=== PATIENT | male | born 1990 | race African-American/Black ===

== ENCOUNTER 2016-06-15 20:02 | Emergency (ER) | payer OTHER ==
[~2016-06-15] VITALS: Ht 170.2 cm; Wt 73.0 kg
[~2016-06-15 20:02] MED LIST: AUGMENTIN875 MG PO; CLINDAMYCIN HC300 MG PO; INDOCIN25 MG PO; NO HOME MEDS; NORCO 7.5/321 TABLET PO; PERCOCET 5/31 TABLET PO
[2016-06-15] MEDS ORDERED: PEN-VEE K,VEET500 MG PO (21:22)
[2016-06-15] MEDS ORDERED: NORCO 5/3251 TABLET PO (21:22)
[2016-06-15 21:48] VITALS: BP 137/71
== END 2016-06-15 22:01 | disposition home or self-care (01) ==
LOC: EME 20:02
DX: K08.89 Other specified disorders of teeth and supporting structures (principal); K03.81 Cracked tooth; K02.9 Dental caries, unspecified; F17.200 Nicotine dependence, unspecified, uncomplicated
CPT/HCPCS: 99281; 99284

== ENCOUNTER 2016-08-07 20:58 | Emergency (ER) | payer OTHER ==
[~2016-08-07] VITALS: Ht 170.2 cm; Wt 71.4 kg
[~2016-08-07 20:58] MED LIST changes: +NORCO 5/3251 TABLET PO; +PEN-VEE K,VEET500 MG PO
[2016-08-07] MEDS ORDERED: CLEOCIN300 MG PO (21:47)
[2016-08-07] MEDS ORDERED: PERCOCET 5/31 TABLET PO (22:38)
[2016-08-07 22:42] VITALS: BP 137/75
== END 2016-08-07 22:46 | disposition home or self-care (01) ==
LOC: EME 20:58
DX: L02.01 Cutaneous abscess of face (principal); F17.200 Nicotine dependence, unspecified, uncomplicated
CPT/HCPCS: 99281; 99284

== ENCOUNTER 2016-08-10 06:55 | Emergency (ER) | payer OTHER ==
[~2016-08-10] VITALS: Ht 170.2 cm; Wt 74.0 kg
[~2016-08-10 06:55] MED LIST changes: +CLEOCIN300 MG PO
[2016-08-10] MEDS ORDERED: PROVENTIL HFA6.7 GM IH (07:40)
[2016-08-10 08:18] VITALS: BP 144/76
== END 2016-08-10 08:20 | disposition home or self-care (01) ==
LOC: EME 06:55
DX: T59.811A Toxic effect of smoke, accidental (unintentional), initial encounter (principal); J68.0 Bronchitis and pneumonitis due to chemicals, gases, fumes and vapors; K12.2 Cellulitis and abscess of mouth; F17.200 Nicotine dependence, unspecified, uncomplicated; Z88.1 Allergy status to other antibiotic agents
CPT/HCPCS: 71020; 94640; 99281; 99283